=== PATIENT | female | born 1955 | race Two or more races ===

== ENCOUNTER 2024-08-22 10:35 | Emergency (ER) | payer OTHER ==
[~2024-08-22] VITALS: Ht 160 cm; Wt 83.9 kg
[2024-08-22] MEDS ORDERED: ZESTRIL40 M1 PO (10:42)
[2024-08-22] MEDS ORDERED: AMANTADINE50 MG/5 ML (10:43)
[2024-08-22] MEDS ORDERED: AMLODIPINE-OLM1 EAC2 PO (10:43)
[2024-08-22] MEDS ORDERED: 0.9 % SODIUM CHLORIDE 1,000 ML IV STA (11:26)
[2024-08-22] MEDS ORDERED: MEPERIDINE HCL/PF 50 MG/ML VIAL IM STA (11:27)
[2024-08-22] MEDS ORDERED: PROMETHAZINE HCL 50 MG/ML AMPUL IM STA (11:28)
[2024-08-22 12:05] LABS: HEMATOCRIT 38.7 % (36.0-45.00); HEMOGLOBIN 13.3 g/dL (12.0-15.00); MEAN CELL VOLUME 87.1 fL (80.00-100.00); MEAN CORPUSCULAR HGB CONC 34.4 g/dl (32.0-36.0); PLATELET COUNT 316 K/uL (150-450); RED BLOOD COUNT 4.44 M/uL (4.00-6.00); RED CELL DISTRIBUTION WIDTH 13.5 % (11.5-14.5)
[2024-08-22 12:41] LABS: ALBUMIN 3.9 gm/dL (3.4-5.0); BILIRUBIN TOTAL 0.46 mg/dL (0.3-1.2); BILIRUBIN,CONJUGATED 0.13 mg/dL (0.0-0.2); BILIRUBIN,UNCONJUGATED 0.33 mg/dL (0.0-0.6); CALCIUM 9.3 mg/dL (8.5-10.1); CREATININE SERUM 1.05 mg/dL (0.55-1.02); GFR 51.81; POTASSIUM 4.46 mEq/L (3.5-5.1); TOTAL PROTEIN 7.6 gm/dL (6.4-8.2)
[2024-08-22 14:27] LABS: PH,URINE 8.5 (5.0-8.0); URINE APPEARANCE Clear; URINE BILIRRUBIN Negative (NEGATIVE); URINE BLOOD Small; URINE COLOR Yellow; URINE GLUCOSE Negative (NEGATIVE); URINE KETONE Negative (NEGATIVE); URINE LEUKOCYTE Negative; URINE NITRATE Negative; URINE PROTEIN Trace (NEGATIVE); URINE UROBILINOGEN 0.2 E.U./dl
[2024-08-22 14:31] LABS: URINE BACTERIA 985.2 uL (0.0-1933); URINE EPITHELIAL CELLS 20.4 uL (0.0-38.8); URINE RBC 224.2 uL (0.0-20.8); URINE WBC 3.7 uL (0.0-23.2)
[2024-08-22 14:43] LABS: URINE CAST 0.45 uL (0.0-1.40)
== END 2024-08-22 15:30 | disposition home or self-care (01) ==
LOC: ER 10:37
PROVIDERS: General Practice
DX: N20.1 Calculus of ureter (principal); R10.9 Unspecified abdominal pain; R10.2 Pelvic and perineal pain; I10 Essential (primary) hypertension
CPT/HCPCS: 36415; 74176; 96365; 96366; 96372; 99284; J2550; J3490; J7030